=== PATIENT | female | born 1980 | race Two or more races ===

== ENCOUNTER 2016-12-17 16:34 | Observation (INO) | payer OTHER ==
[2016-12-17] MEDS ORDERED: BETAMET ACET&NA PHOS 30 MG/5 ML VIAL. IM SCH ×2 (17:15→18:30)
[2016-12-17] MEDS ORDERED: IV RINGERS,LACTATED 1000ML 1,000 ML IV SCH (18:00)
--- NOTE | 2016-12-17 20:31 | RAD ---
EXAM: Obstetric ultrasound for biophysical profile. HISTORY: Twin gestation, decelerations. COMPARISON: None. FINDINGS: Sonographic evaluation of the pelvis and fetus is was performed transabdominally. There is a dichorionic, diamniotic gestation. The cervix is closed and measures 4.3 cm. Amniotic fluid index 11.3 cm. The placenta is are anterior and lateral bilaterally. Twin A is transverse in presentation inferiorly with head to maternal left. Twin A heart rate 153 bpm. Biophysical profile score 6/8. breathing was noted during the study, but it did not persist for 30 seconds. Twin B is transverse presentation superiorly, head to maternal left. Twin B heart rate 162 bpm. Biophysical profile score 8/8. IMPRESSION: 1. Twin A biophysical profile score 6/8. breathing was noted but it does not persist for 30 seconds. Heart rate 153 bpm. 2. Twin B biophysical profile score 8/8. Heart rate 162 bpm. Electronically signed by: Sindi Trejo MD (12/17/2016 8:28 PM) [facility]
== END 2016-12-17 19:58 | disposition home or self-care (01) ==
LOC: 3 SO LND 16:34
PROVIDERS: ADMIT Obstetrics & Gynecology; ATTEND Obstetrics & Gynecology
DX: O76 Abnormality in fetal heart rate and rhythm complicating labor and delivery (principal); O30.043 Twin pregnancy, dichorionic/diamniotic, third trimester; Z3A.28 28 weeks gestation of pregnancy
CPT/HCPCS: 76819; 96372; G0378; G0379; J0702

== ENCOUNTER 2016-12-18 18:51 | Observation (INO) | payer BC ==
[2016-12-18] MEDS ORDERED: BETAMET ACET&NA PHOS 30 MG/5 ML VIAL. IM ONE (19:00)
== END 2016-12-18 19:40 | disposition home or self-care (01) ==
LOC: 3 SO LND 18:51
PROVIDERS: ADMIT Obstetrics & Gynecology; ATTEND Obstetrics & Gynecology
DX: O36.5990 Maternal care for other known or suspected poor fetal growth, unspecified trimester, not applicable or unspecified (principal); O30.049 Twin pregnancy, dichorionic/diamniotic, unspecified trimester; Z3A.00 Weeks of gestation of pregnancy not specified
CPT/HCPCS: 96372; G0378; G0379; J0702

== ENCOUNTER 2016-12-25 16:40 | Observation (INO) | payer BC ==
[2016-12-25] MEDS ORDERED: IV RINGERS,LACTATED 1000ML 1,000 ML IV SCH (17:27)
== END 2016-12-25 17:25 | disposition home or self-care (01) ==
LOC: 3 SO LND 16:40
PROVIDERS: ADMIT Obstetrics & Gynecology; ATTEND Obstetrics & Gynecology
DX: O36.5930 Maternal care for other known or suspected poor fetal growth, third trimester, not applicable or unspecified (principal); O30.003 Twin pregnancy, unspecified number of placenta and unspecified number of amniotic sacs, third trimester; Z3A.29 29 weeks gestation of pregnancy
CPT/HCPCS: G0378; G0379; 59025

== ENCOUNTER 2017-01-01 16:29 | Observation (INO) | payer BC | END 2017-01-01 18:30 | disposition home or self-care (01) | LOC: 3 SO LND 16:29 | PROVIDERS: ADMIT Obstetrics & Gynecology; ATTEND Obstetrics & Gynecology | DX: O30.003 Twin pregnancy, unspecified number of placenta and unspecified number of amniotic sacs, third trimester (principal); Z3A.30 30 weeks gestation of pregnancy | CPT/HCPCS: G0378; G0379; 59025 ==

== ENCOUNTER 2017-01-08 16:55 | Inpatient (IN) | payer BC ==
[~2017-01-08] VITALS: Ht 157.5 cm; Wt 98.4 kg
--- NOTE | 2017-01-08 18:37 | PDOC ---
Provider Note Provider Note Shruthi Marshall presented to [facility] following concerning BPP in Dr. Olivares's office at [facility]. She is 31 5/7 weeks and di/ di twin gestation with an LIANNE of 03/07/17. She received steroid two weeks ago. Twin B has demonstrated decreased growth over the last several weeks and is also known to have cleft lip and possible cleft palate. Mother plans to breast/ bottle feed and her follow up compliance review officer is Dr. Cleary, who sees her 3-year- old daughter, as well. I discussed various scenarios should mother deliver now. I told her that babies would be transferred to [facility]. We discussed respiratory support, oral feedings when gestationally ready, difficulty with oral feedings for Twin B, estimated length of hospitalization, etc. Mother denied further questions and verbalized understanding. Encouraged her to call and ask for [employer] should further questions arise. LOS Delgado-FABY MONCADA Jan 08, 2017 18:37
--- NOTE | 2017-01-08 19:11 | PDOC1 ---
OB - History Hx of Present Care: Good Care Ultrasounds: Abnormal US findings (Twin B severe IUGR and decreased MCA flow) Obstetrical Complications: Other (Twins. Twin B severe IUGR and decreased MCA flow) Medical Complications: None Past Family/Social History * Past Medical, Surgical, Family and Obstetric Histories reviewed from chart. Rubella: Immune RPR/VDRL: Negative GBS Status: Unknown HBsAG: Negative OB - Chief Complaint & HPI Date of Admission: Date of Admission: Jan 08, 2017 at 16:55 Chief Complaint/History : 2 Para: 1 EGA: 31 Reason for admission: section (Twins. Twin B severe IUGR with decreased MCA flow) Admission Nurse Assessment Rev: Yes Problems: OB - Admission Exam Physical Exam HEENT: Normal Heart: Regular Rate Lungs: Clear Abdomen: Gravid, Non tender, Soft Extremities: Edema Reflexes: Normal Cervical Dilatation: None Effacement: 0% Station: Ballotable Membranes: Intact Accelerations: Accelerations Present Decelerations: Variable decelerations (Twin B) Contractions on Admission: 6-10 Minutes Apart Intensity: Mild Text A: 31 + 5 wks IUP twins Twin B severe IUGR with decreases MCA flow s/p corticosteroids 12/18/16 P: Admit for c/s. Discussed critical findings with MFM as well as plan of care for delivery. Discussed plan with patient and family. Family prefers infants transfer to [facility] since Twin B with cleft lip and palate. PARESH GUILLEN Jr, MD Jan 08, 2017 19:11
[2017-01-08 19:43] LABS: HEMATOCRIT 30.5 % (36.0-47.0); HEMOGLOBIN 10.3 g/dL (12.0-15.5); RED BLOOD COUNT 3.5 x10^6/uL (3.50-5.40); RED CELL DISTRIBUTION WIDTH 14.2 % (11.5-14.5); WHITE BLOOD COUNT 8.6 x10^3/uL (4.0-11.0)
[2017-01-08] MEDS ORDERED: 0.9 % SODIUM CHLORIDE 10 ML DISP.SYRIN. IV PRN ×2 (19:45→22:00)
[2017-01-08] MEDS ORDERED: LIDOCAINE 1% PF 30 ML VIAL. INJ PRN (19:45)
[2017-01-08] MEDS ORDERED: TERBUTALINE 1 MG/ML VIAL. SQ PRN (19:45)
[2017-01-08] MEDS ORDERED: IBUPROFEN 800 MG TABLET. PO PRN ×2 (19:45→22:00)
[2017-01-08] MEDS ORDERED: CITRIC ACID/SODIUM CITRATE 30 ML SOLUTION. PO PRN (19:45)
[2017-01-08] MEDS ORDERED: OXYTOCIN 30 UNIT/500 ML PREMIX 500 ML IV PRN ×2 (19:45→22:00)
[2017-01-08 19:46] LABS: BILIRUBIN,URINE NEGATIVE (NEG); GLUCOSE,URINE NEGATIVE (NEG); NITRITE,URINE NEGATIVE (NEG); PH,URINE 6.5; PROTEIN,URINE NEGATIVE (NEG-TRACE); UROBILINOGEN,URINE 0.2 mg/dL (0.2 mg/dL)
[2017-01-08 19:57] LABS: BACTERIA,URINE FEW /HPF (0-FEW); RBC,URINE 0 /HPF (0-2); SQUAMOUS EPITHELIAL CELL,UR MANY /LPF
[2017-01-08 19:57] LABS: CALCIUM 8.8 mg/dL (8.5-10.1); CREATININE 0.5 mg/dL (0.6-1.0); GFR 140.4
[2017-01-08 20:04] LABS: ALBUMIN 2.5 g/dL (3.4-5.0); ALBUMIN/GLOBULIN RATIO 0.7 (1.0-1.7); TOTAL BILIRUBIN 0.2 mg/dL (0.2-1.0); TOTAL PROTEIN 6.3 g/dL (6.4-8.2)
[2017-01-08] MEDS ORDERED: PHENYLEPHRINE 10 MG/ML VIAL. ONE (20:39)
[2017-01-08] MEDS ORDERED: OXYTOCIN 10 UNIT/ML VIAL. ONE ×2 (20:40→21:44)
[2017-01-08] MEDS ORDERED: ONDANSETRON PF 4 MG/2 ML VIAL. ONE (20:40)
[2017-01-08] MEDS: IV RINGERS,LACTATED 1000ML 1,000 ML IV SCH (20:41)
[2017-01-08] MEDS ORDERED: MORPHINE PF 5 MG/10 ML VIAL. ONE (20:46)
[2017-01-08] MEDS ORDERED: fentaNYL PF VIAL 100 MCG/2 ML VIAL ONE (20:46)
--- NOTE | 2017-01-08 21:58 | PDOC4 ---
OB Operative Note PRE OP DIAGNOSIS: Multiple Gestation (31 wks IUP with Twin B severe IUGR and abnormal dopplers) POST OP DIAGNOSIS: Other (Same) OPERATION PERFORMED: [address] Solorio Anesthesia: Regional (Spinal) Blood Loss 700 ml Specimen placenta x 2 and twin A and twin B OB Findings: Position (both breech), Sex (both female), , Weight (Twin A 4 lbs. , Twin B pending), Fluid (Clear), Nuchal Cord (x1 on both twins) Complications none Additional Remarks pt. PARESH Wolff Jr, MD Jan 08, 2017 21:58
[2017-01-08] MEDS ORDERED: ZOLPIDEM 5 MG TABLET. PO PRN (22:00)
[2017-01-08] MEDS ORDERED: MAG HYDROX/ALUMINUM HYD/SIMETH 30 ML ORAL.SUSP PO PRN (22:00)
[2017-01-08] MEDS ORDERED: DOCUSATE SODIUM 100 MG CAPSULE. PO PRN (22:00)
[2017-01-08] MEDS ORDERED: ONDANSETRON PF 4 MG/2 ML VIAL. IV PRN (22:00)
[2017-01-08] MEDS ORDERED: diphenhydrAMINE ORAL ELIXIR 12.5 MG/5 ML ML PO PRN (22:00)
[2017-01-08] MEDS ORDERED: SIMETHICONE 80 MG TAB.CHEW PO PRN (22:00)
--- NOTE | 2017-01-08 22:31 | OP ---
DATE OF SURGERY: PREOPERATIVE DIAGNOSES: 1. A 31-1/2 weeks intrauterine with twin gestation. 2. Twin B severe IUGR and abnormal Dopplers. POSTOPERATIVE DIAGNOSES: 1. A 31-1/2 weeks intrauterine with twin gestation. 2. Twin B severe IUGR and abnormal Dopplers. PROCEDURE: Primary low transverse section. SURGEON: Paresh Solorio MD ANESTHESIA: Spinal. ESTIMATED BLOOD LOSS: 700 mL. COMPLICATIONS: None. FINDINGS: Viable twin A, weight 4 pounds, viable twin B, weight is pending. Both with breech deliveries, both had nuchal cord x 1. SUMMARY: A 36-year-old 2, para 1 at 31-1/2 weeks' gestation who presented to [facility] earlier today for a sonogram. That sonogram indicated severe IUGR of twin B along with abnormal Dopplers of twin B. [facility] communicated with myself the urgency for monitoring and delivery soon. The patient was then sent to Labor and Delivery. She and her family discussed the findings as well as the plan of care. Due to the severity of the nature and the abnormal Dopplers, the NICU team and hospital teams were updated and plan was formed for delivery at the evening. The patient was counseled on the risks, benefits and expectations of section and voiced clear understanding to proceed. DESCRIPTION OF PROCEDURE: The patient was taken to the surgery suite and placed in dorsal supine position. She was prepped with ChloraPrep and draped in a sterile fashion. After adequate anesthesia, a Pfannenstiel skin incision was made with a scalpel down to and through the fascia. The fascia was extended laterally using curved Rosario scissors. The superior edge of the fascia was grasped with two Zina clamps and dissected free of the abdominal rectus muscles using blunt dissection along with Bovie cautery. The same process took place inferiorly. The abdominal rectus muscles then dissected bluntly at the midline. The peritoneum was grasped with 2 hemostats and entered sharply with Metzenbaum scissors. This incision was extended superiorly as well as inferiorly. The Arjun ring retractor was then placed. Low transverse hysterotomy incision was made with a scalpel down to the amniotic sac. Hysterotomy incision was extended laterally and superiorly digitally. Amniotomy was performed with Allis clamp, which elicited a moderate amount of clear fluid. Twin A was breech. Fundal pressure was applied. Twin A was delivered up to the scapular region in which both arms were flexed. With additional fundal pressure, the head was delivered. Nuchal cord x 1 was reduced. was suctioned with a bulb syringe orally and nasally. The umbilical cord was clamped twice and cut. A viable male infant was handed to awaiting nursing staff and NICU team. The umbilical cord blood as well as arterial pH was obtained. Same process took place with twin B, which was also breech and nuchal cord x 1. The placenta was delivered manually intact. The uterus was exteriorized, cleared of clot and debris with a moist lap. The hysterotomy incision was reapproximated using 1-0 Vicryl suture in a running locked fashion and imbricated layer of 1-0 Vicryl suture was performed for better hemostasis. Uterus palpated firm. Fallopian tubes and ovaries appeared normal bilaterally. Posterior cul-de-sac was cleared of clot and debris with moist lap. The uterus then returned to the abdomen. The pericolic gutters were cleared of clot and debris with a moist lap. Interceed was placed over the hysterotomy incision in an inverted T fashion. The Arjun ring retractor was removed. The peritoneum was reapproximated using 1-0 Vicryl suture in a running fashion. Fascia was reapproximated using 0 Vicryl suture in a running fashion. Skin was reapproximated using 4-0 Vicryl suture in a subcuticular manner. The patient tolerated the procedure well and was taken to recovery room in stable condition. Sponge and needle counts correct x 3. PARESH SOLORIO MD DR: MARIO/cayla JOB#: [id number] / [id number]
[2017-01-08] MEDS: KETOROLAC TROMETHAMINE 30 MG/ML INJ. IV PRN (23:59)
[2017-01-09 01:55] VITALS: BP 108/64
[2017-01-09] MEDS: IV RINGERS,LACTATED 1000ML 1,000 ML IV SCH (04:54)
[2017-01-09 05:49] LABS: BASO % 0 % (0-3); EOS % 0 % (0-3); HEMATOCRIT 27.1 % (36.0-47.0); LYMPH % 21 % (24-48); MEAN CORPUSCULAR HEMOGLOBIN 29 pg (25-35); MEAN CORPUSCULAR HGB CONC 33 g/dL (31-37); MEAN CORPUSCULAR VOLUME 88 fL (79-100); MONO % 5 % (0-9); NEUT % 74 % (31-73); PLATELET COUNT 179 x10^3/uL (140-400); RED CELL DISTRIBUTION WIDTH 14.5 % (11.5-14.5); WHITE BLOOD COUNT 9.9 x10^3/uL (4.0-11.0)
[2017-01-09] MEDS ORDERED: FERROUS SULFATE 325 MG TABLET. PO SCH (08:00)
[2017-01-09] MEDS: KETOROLAC TROMETHAMINE 30 MG/ML INJ. IV PRN (08:05)
[2017-01-09] MEDS: oxyCODONE/APAP 5/325 1 TAB TABLET PO PRN ×2 (09:15→13:53)
[2017-01-09 11:00] VITALS: BP 116/72
--- NOTE | 2017-01-09 11:38 | PDOC ---
OB Progress Note Date of Service 01/09/17 Time of Evaluation 1135 Notes Pt. feeling well. Pain controlled. Infants at [facility] and desires d/c today. Pt. ambulating, voiding and tolerating regular diet. Lab Laboratory Tests Test 01/08/17 19:15 01/08/17 19:22 01/09/17 05:05 White Blood Count 8.6 x10^3/uL (4.0-11.0) 9.9 x10^3/uL (4.0-11.0) Red Blood Count 3.50 x10^6/uL (3.50-5.40) 3.10 x10^6/uL (3.50-5.40) Hemoglobin 10.3 g/dL (12.0-15.5) 9.0 g/dL (12.0-15.5) Hematocrit 30.5 % (36.0-47.0) 27.1 % (36.0-47.0) Mean Corpuscular Volume 87 fL (79-100) 88 fL (79-100) Mean Corpuscular Hemoglobin 30 pg (25-35) 29 pg (25-35) Mean Corpuscular Hemoglobin Concent 34 g/dL (31-37) 33 g/dL (31-37) Red Cell Distribution Width 14.2 % (11.5-14.5) 14.5 % (11.5-14.5) Platelet Count 234 x10^3/uL (140-400) 179 x10^3/uL (140-400) Sodium Level 138 mmol/L (136-145) Potassium Level 4.0 mmol/L (3.5-5.1) Chloride Level 101 mmol/L (98-107) Carbon Dioxide Level 21 mmol/L (21-32) Anion Gap 16 (6-14) Blood Urea Nitrogen 11 mg/dL (7-20) Creatinine 0.5 mg/dL (0.6-1.0) Estimated GFR (Cockcroft-Gault) 140.4 BUN/Creatinine Ratio 22 (6-20) Glucose Level 78 mg/dL (70-99) Calcium Level 8.8 mg/dL (8.5-10.1) Total Bilirubin 0.2 mg/dL (0.2-1.0) Aspartate Amino Transf (AST/SGOT) 16 U/L (15-37) Alanine Aminotransferase (ALT/SGPT) 15 U/L (14-59) Alkaline Phosphatase 138 U/L (46-116) Total Protein 6.3 g/dL (6.4-8.2) Albumin 2.5 g/dL (3.4-5.0) Albumin/Globulin Ratio 0.7 (1.0-1.7) Urine Collection Type Unknown Urine Color Yellow Urine Clarity Cloudy Urine pH 6.5 Urine Specific Logan 1.015 Urine Protein Negative mg/dL (NEG-TRACE) Urine Glucose (UA) Negative mg/dL (NEG) Urine Ketones (Stick) Negative mg/dL (NEG) Urine Blood Negative (NEG) Urine Nitrite Negative (NEG) Urine Bilirubin Negative (NEG) Urine Urobilinogen Dipstick 0.2 mg/dL (0.2 mg/dL) Urine Leukocyte Esterase Small (NEG) Urine RBC 0 /HPF (0-2) Urine WBC 5-10 /HPF (0-4) Urine Squamous Epithelial Cells Many /LPF Urine Bacteria Few /HPF (0-FEW) Neutrophils (%) (Auto) 74 % (31-73) Lymphocytes (%) (Auto) 21 % (24-48) Monocytes (%) (Auto) 5 % (0-9) Eosinophils (%) (Auto) 0 % (0-3) Basophils (%) (Auto) 0 % (0-3) Neutrophils # (Auto) 7.4 x10^3uL (1.8-7.7) Lymphocytes # (Auto) 2.0 x10^3/uL (1.0-4.8) Monocytes # (Auto) 0.5 x10^3/uL (0.0-1.1) Eosinophils # (Auto) 0.0 x10^3/uL (0.0-0.7) Basophils # (Auto) 0.0 x10^3/uL (0.0-0.2) Laboratory Tests Test 01/08/17 19:15 01/08/17 19:22 01/09/17 05:05 White Blood Count 8.6 x10^3/uL (4.0-11.0) 9.9 x10^3/uL (4.0-11.0) Red Blood Count 3.50 x10^6/uL (3.50-5.40) 3.10 x10^6/uL (3.50-5.40) Hemoglobin 10.3 g/dL (12.0-15.5) 9.0 g/dL (12.0-15.5) Hematocrit 30.5 % (36.0-47.0) 27.1 % (36.0-47.0) Mean Corpuscular Volume 87 fL (79-100) 88 fL (79-100) Mean Corpuscular Hemoglobin 30 pg (25-35) 29 pg (25-35) Mean Corpuscular Hemoglobin Concent 34 g/dL (31-37) 33 g/dL (31-37) Red Cell Distribution Width 14.2 % (11.5-14.5) 14.5 % (11.5-14.5) Platelet Count 234 x10^3/uL (140-400) 179 x10^3/uL (140-400) Sodium Level 138 mmol/L (136-145) Potassium Level 4.0 mmol/L (3.5-5.1) Chloride Level 101 mmol/L (98-107) Carbon Dioxide Level 21 mmol/L (21-32) Anion Gap 16 (6-14) Blood Urea Nitrogen 11 mg/dL (7-20) Creatinine 0.5 mg/dL (0.6-1.0) Estimated GFR (Cockcroft-Gault) 140.4 BUN/Creatinine Ratio 22 (6-20) Glucose Level 78 mg/dL (70-99) Calcium Level 8.8 mg/dL (8.5-10.1) Total Bilirubin 0.2 mg/dL (0.2-1.0) Aspartate Amino Transf (AST/SGOT) 16 U/L (15-37) Alanine Aminotransferase (ALT/SGPT) 15 U/L (14-59) Alkaline Phosphatase 138 U/L (46-116) Total Protein 6.3 g/dL (6.4-8.2) Albumin 2.5 g/dL (3.4-5.0) Albumin/Globulin Ratio 0.7 (1.0-1.7) Urine Collection Type Unknown Urine Color Yellow Urine Clarity Cloudy Urine pH 6.5 Urine Specific Logan 1.015 Urine Protein Negative mg/dL (NEG-TRACE) Urine Glucose (UA) Negative mg/dL (NEG) Urine Ketones (Stick) Negative mg/dL (NEG) Urine Blood Negative (NEG) Urine Nitrite Negative (NEG) Urine Bilirubin Negative (NEG) Urine Urobilinogen Dipstick 0.2 mg/dL (0.2 mg/dL) Urine Leukocyte Esterase Small (NEG) Urine RBC 0 /HPF (0-2) Urine WBC 5-10 /HPF (0-4) Urine Squamous Epithelial Cells Many /LPF Urine Bacteria Few /HPF (0-FEW) Neutrophils (%) (Auto) 74 % (31-73) Lymphocytes (%) (Auto) 21 % (24-48) Monocytes (%) (Auto) 5 % (0-9) Eosinophils (%) (Auto) 0 % (0-3) Basophils (%) (Auto) 0 % (0-3) Neutrophils # (Auto) 7.4 x10^3uL (1.8-7.7) Lymphocytes # (Auto) 2.0 x10^3/uL (1.0-4.8) Monocytes # (Auto) 0.5 x10^3/uL (0.0-1.1) Eosinophils # (Auto) 0.0 x10^3/uL (0.0-0.7) Basophils # (Auto) 0.0 x10^3/uL (0.0-0.2) Medications Current Medications Cefazolin Sodium/ Dextrose 50 ml @ 100 mls/hr 1X ONCE IV ; Start 01/09/17 at 06:00; Stop 01/09/17 at 06:00; Status DC Sodium Chloride (Normal Saline Flush) 3 ml QSHIFT PRN IV AFTER MEDS AND BLOOD DRAWS; Start 01/08/17 at 19:45 Ringer's Solution 1,000 ml @ 125 mls/hr Q8H IV Last administered on 01/09/17t 04:54; Start 01/08/17 at 19:32 Citric Acid/ Sodium Citrate (Bicitra) 30 ml 1X PRN PRN PO DYSPEPSIA Last administered on 01/08/17t 20:42; Start 01/08/17 at 19:45; Stop 01/09/17 at 19:44 Terbutaline Sulfate (Brethine) 0.25 mg 1X PRN PRN SQ SEE COMMENTS; Start at 19:45; Stop 01/09/17 at 19:44 Lidocaine HCl 30 ml 1X PRN PRN INJ SEE COMMENTS; Start 01/08/17 at 19:45; Stop 01/10/17 at 19:44 Oxytocin/Sodium Chloride 500 ml @ 0 mls/hr CONT PRN PRN IV Post delivery bleeding; Start 01/08/17 at 19:45 Ibuprofen (Motrin) 800 mg PRN Q6HRS PRN PO PAIN; Start 01/08/17 at 19:45; Stop 01/08/17 at 22:09; Status DC Cefazolin Sodium/ Dextrose 50 ml @ 100 mls/hr 1X ONCE IV Last administered on 01/08/17t 20:41; Start 01/08/17 at 20:15; Stop 01/08/17 at 20:44; Status DC Phenylephrine HCl (Luis Alberto-Synephrine Inj) 10 mg STK-MED ONCE .ROUTE ; Start at 20:39; Stop 01/08/17 at 20:40; Status DC Ephedrine Sulfate (Akovaz) 50 mg STK-MED ONCE .ROUTE ; Start 01/08/17 at 20:39; Stop 01/08/17 at 20:40; Status DC Oxytocin (Pitocin) 10 unit STK-MED ONCE .ROUTE ; Start 01/08/17 at 20:40; Stop 01/08/17 at 20:41; Status DC Ondansetron HCl (Zofran) 4 mg STK-MED ONCE .ROUTE ; Start 01/08/17 at 20:40; Stop 01/08/17 at 20:41; Status DC Morphine Sulfate (Morphine Preservative Free) 5 mg STK-MED ONCE .ROUTE ; Start 01/08/17 at 20:46; Stop 01/08/17 at 20:47; Status DC Fentanyl Citrate (Fentanyl 2ml Vial) 100 mcg STK-MED ONCE .ROUTE ; Start at 20:46; Stop 01/08/17 at 20:47; Status DC Oxytocin (Pitocin) 10 unit STK-MED ONCE .ROUTE ; Start 01/08/17 at 21:44; Stop 01/08/17 at 21:45; Status DC Sodium Chloride (Normal Saline Flush) 3 ml QSHIFT PRN IV AFTER MEDS AND BLOOD DRAWS; Start 01/08/17 at 22:00 Oxytocin/Sodium Chloride 500 ml @ 125 mls/hr CONT PRN IV EXCESSIVE POST- BLEEDING; Start 01/08/17 at 22:00; Stop 01/09/17 at 05:59; Status DC Ibuprofen (Motrin) 800 mg PRN Q8HRS PRN PO INFLAMMATION; Start 01/08/17 at 22: 00 Ondansetron HCl (Zofran) 4 mg PRN Q6HRS PRN IV NAUSEA/VOMITING; Start 01/08/17 at 22:00 Docusate Sodium (Colace) 100 mg PRN BID PRN PO CONSTIPATION; Start 01/08/17 at 22:00 Al Hydroxide/Mg Hydroxide (Mylanta Plus Xs) 30 ml PRN Q4HRS PRN PO HEARTBURN / GAS; Start 01/08/17 at 22:00 Simethicone (Gas-X) 80 mg PRN AFTMEALHC PRN PO GAS / BLOATING; Start 01/08/17 at 22:00 Diphenhydramine HCl (Benadryl Oral Elixir) 12.5 mg PRN Q6HRS PRN PO ITCHING; Start 01/08/17 at 22:00 Ferrous Sulfate (Feosol) 325 mg BIDWMEALS PO ; Start 01/09/17 at 08:00 Zolpidem Tartrate (Ambien) 5 mg PRN QHS PRN PO INSOMNIA, MAY REPEAT X1; Start 01/08/17 at 22:00 Oxycodone/ Acetaminophen (Percocet 5/325) 2 tab PRN Q4HRS PRN PO MODERATE PAIN , SEVERE PAIN Last administered on 01/09/17 09:15; Start 01/08/17 at 22:00 Ketorolac Tromethamine (Toradol) 30 mg PRN Q6HRS PRN IV MODERATE PAIN Last administered on 01/09/17 08:05; Start 01/08/17 at 22:00; Stop 01/13/17 at 21:59 Exam Abd: soft, mild tender, fundus firm Incision site: clean, dry and intact Assessment POD#1 s/p c/s Plan of Care: See new orders (D/c home.) PARESH GUILLEN Jr, MD Jan 09, 2017 11:38
--- NOTE | 2017-01-09 11:39 | DISCH ---
DISCHARGE INSTRUCTIONS Condition on Discharge Condition on Discharge: Stable Activity After Discharge Activity Instructions for Disc: Activity as tolerated Lifting Instructions after Dis: No heavy lifting Driving Instructions after Dis: No driving for 2 weeks Diet after Discharge Diet after Discharge: Regular Contacting the DRGayla after DC Call your doctor for: Concerns you may have Follow-Up Follow up with: Dr. Solorio in 2 weeks. PARESH SOLORIO Jr, MD Jan 09, 2017 11:39
[2017-01-09] MEDS ORDERED: OXYC-323 PO (11:40)
[2017-01-09] MEDS ORDERED: DOCU-109 PO (11:40)
[2017-01-09] MEDS ORDERED: IBUP-1060 PO (11:40)
[2017-01-09] MEDS ORDERED: ceFAZolin 2GM PREMIX 2 GM/50 ML BAG IV ONE (12:00)
[2017-01-09 13:30] VITALS: BP 121/78
[2017-01-10 07:29] LABS: RPR REFLEX Non Reactive (Non Reactive)
== END 2017-01-09 16:17 | disposition home or self-care (01) | DRG 765 ==
LOC: OBSVTOIN 16:55 → 3 SO LND 16:55
PROVIDERS: ADMIT Obstetrics & Gynecology; ATTEND Obstetrics & Gynecology
PROC: 10D00Z1 Extraction of Products of Conception, Low, Open Approach (ICD-10-PCS; principal; 2017-01-08)
DX: O36.5932 Maternal care for other known or suspected poor fetal growth, third trimester, fetus 2 (principal); O30.003 Twin pregnancy, unspecified number of placenta and unspecified number of amniotic sacs, third trimester; O69.81X2 Labor and delivery complicated by cord around neck, without compression, fetus 2; O69.81X1 Labor and delivery complicated by cord around neck, without compression, fetus 1; O32.1XX1 Maternal care for breech presentation, fetus 1; O32.1XX2 Maternal care for breech presentation, fetus 2; Z3A.31 31 weeks gestation of pregnancy; Z37.2 Twins, both liveborn
CPT/HCPCS: 36415; 80053; 81001; 85025; 85027; 86593; 86850; 86900; 86901; 87086; G0378; J0690; J1885; J2270; J2405; J2590; J3010; J7120